=== PATIENT | female | born 1955 | race Caucasian/White ===

== ENCOUNTER → 2020-12-15 | Outpatient (CLI) | payer BC, SELFPAY ==
--- NOTE | 2020-12-14 17:30 | LES_PTH ---
PATIENT: SAM DONALD LOC: [facility] U#:[id number] AGE/SX: 65/F ROOM: RE12/15/[address]: Dr. Tre Macdonald MD : 1955 BED: DIS: 12/15/2020 SPEC #: [id number] RECD: 12/15/20 10:38 STATUS: SHANTA RAMA #: [id number] HARRIS: 12/14/20 17:[address]: Tre Macdonald DEPT: SURGICAL PATHOLOGY RECD BY: Kit Klein Tissues: Skin of eyelid, NOS Procedures: Surgery Specimen Level IV HEADER OPERATION: DYAN lesion removal PRE-OP DIAGNOSIS: DYAN lesion TISSUE SUBMITTED: DYAN lesion MICROSCOPIC DIAGNOSIS DYAN lesion, biopsy: Consistent with molluscum contagiosum. GABRIEL:adriane 12/18/2020 MICROSCOPIC DESCRIPTION Slides are reviewed. GROSS DESCRIPTION Received in fixative is one container labeled with the patient's name and designated left upper eyelid. The specimen consists of an irregular fragment of light duke soft tissue measuring 0.1 x 0.1 x <0.1 cm. The specimen is totally submitted in one cassette. / AM:adriane 12/15/20 TC:5 CPT: 00466
== END | disposition home or self-care (01) ==
PROVIDERS: Referring Provider Ophthalmology; Visit Provider Ophthalmology
DX: H02.9 Unspecified disorder of eyelid (principal)
CPT/HCPCS: 88305